=== PATIENT | female | born 1950 | race Caucasian/White ===

== ENCOUNTER → 2016-11-29 10:24 | Outpatient (CLI) | payer MEDICARE, OTHER | END | disposition home or self-care (01) | LOC: D.CT 10:24 | DX: R93.8 Abnormal findings on diagnostic imaging of other specified body structures (principal) ==

== ENCOUNTER → 2017-05-31 09:14 | Outpatient (CLI) | payer MEDICARE, OTHER | END | disposition home or self-care (01) | LOC: D.CT 09:14 | DX: N83.201 Unspecified ovarian cyst, right side (principal); N85.8 Other specified noninflammatory disorders of uterus ==

== ENCOUNTER 2018-02-18 15:20 | Observation (INO) | payer MEDICARE, OTHER ==
[~2018-02-18] VITALS: Ht 167.6 cm; Wt 110.2 kg
[2018-02-18 15:58] LABS: BASOPHILS 0.3 % (0-2); EOSINOPHILS 1.1 % (0-7); HEMATOCRIT 45.8 % (36.0-48.0); HEMOGLOBIN 15.1 g/dL (12-16); IMMATURE GRANULOCYTES 0.3 % (0-5); MCH 32.5 pg (26.0-34.0); MCV 98.7 fL (80.0-100.0); MONOCYTES 7.4 % (2-11); NEUTROPHILS 76.9 % (40-80); PLATELET COUNT 200 10x3/uL (130-400); RBC 4.64 10x6/uL (4.00-5.40); WBC 9.3 10x3/uL (4.8-10.8)
[2018-02-18 16:15] LABS: ALBUMIN 3.8 g/dL (3.4-5.0); ALKALINE PHOSPHATASE 67 U/L (46-116); ALT (SGPT) 25 U/L (10-68); BILIRUBIN - TOTAL 0.49 mg/dL (0.2-1.3); CALC OSMOLALITY 293 mosm/kg (275-300); CALCIUM 9.6 mg/dL (8.5-10.1); CARBON DIOXIDE 26.7 mmol/L (21.0-32.0); CHLORIDE - SERUM 109 mmol/L (98-107); CREATININE - SERUM 1.2 mg/dL (0.6-1.3); GLUCOSE 117 mg/dL (74-106); PROTEIN - SERUM 7.4 g/dL (6.4-8.2); SODIUM 145 mmol/L (136-145); UREA NITROGEN 23 mg/dL (7-18); eGFR NON AFRICAN AMERICAN 47 mL/min (90-120)
[2018-02-18 16:29] LABS: CKMB 1.2 U/L (0.0-3.6); CREATINE KINASE 49 UL (21-215)
[2018-02-18 16:31] LABS: APPEARANCE CLEAR (CLEAR); BILIRUBIN NEGATIVE (NEGATIVE); COLOR YELLOW (YELLOW); GLUCOSE NEGATIVE (NEGATIVE); KETONE MODERATE mg/dL (NEGATIVE); NITRITE NEGATIVE (NEGATIVE); PROTEIN NEGATIVE (NEGATIVE); UROBILINOGEN NORMAL (NORMAL)
[2018-02-18 16:32] LABS: BACTERIA MODERATE /hpf (NONE SEEN); EPITHELIAL CELLS 0-5 /hpf (0-5); RED CELLS - URINE 0-5 /hpf (0-5)
[2018-02-18 16:58] LABS: TROPONIN-I < 0.017 ng/mL (0.000-0.060)
[2018-02-18 19:45] LABS: CKMB 1.1 U/L (0.0-3.6); CREATINE KINASE 46 UL (21-215)
[2018-02-18 19:52] LABS: TROPONIN-I < 0.017 ng/mL (0.000-0.060)
[2018-02-18 23:39] VITALS: BP 164/68; BMI 39.3
[2018-02-19 01:32] LABS: CKMB 1.1 U/L (0.0-3.6); CREATINE KINASE 42 UL (21-215)
[2018-02-19 01:33] LABS: TROPONIN-I < 0.017 ng/mL (0.000-0.060)
[2018-02-19 04:00] VITALS: BP 166/71
[2018-02-19] MEDS ORDERED: NORVASC5 MG PO (04:43)
[2018-02-19] MEDS ORDERED: ZANAFLEX4 MG PO (04:44)
[2018-02-19] MEDS ORDERED: BAYER CHEWABLE81 MG PO (04:45)
[2018-02-19] MEDS ORDERED: LIPITOR10 MG PO (04:45)
[2018-02-19 07:14] LABS: BASOPHILS 0.4 % (0-2); HEMOGLOBIN 14.4 g/dL (12-16); LYMPHOCYTES 21.4 % (15-50); MCH 32.3 pg (26.0-34.0); MCHC 32.7 g/dL (31.0-37.0); MCV 98.7 fL (80.0-100.0); MEAN PLATELET VOLUME 11.2 fL (7.4-10.4); MONOCYTES 9.7 % (2-11); NEUTROPHILS 66.5 % (40-80); PLATELET COUNT 195 10x3/uL (130-400); RBC 4.46 10x6/uL (4.00-5.40); RDW 15.2 % (11.5-14.5)
[2018-02-19 07:24] LABS: WBC 6.8 10x3/uL (4.8-10.8)
[2018-02-19 07:43] LABS: CALC OSMOLALITY 290 mosm/kg (275-300); CALCIUM 9.2 mg/dL (8.5-10.1); CARBON DIOXIDE 24.6 mmol/L (21.0-32.0); CHLORIDE - SERUM 113 mmol/L (98-107); CKMB 1.1 U/L (0.0-3.6); CREATINE KINASE 43 UL (21-215); CREATININE - SERUM 1.1 mg/dL (0.6-1.3); GLUCOSE 113 mg/dL (74-106); MAGNESIUM - SERUM 2.1 mg/dL (1.8-2.4); SODIUM 145 mmol/L (136-145); TROPONIN-I < 0.017 ng/mL (0.000-0.060); eGFR NON AFRICAN AMERICAN 52 mL/min (90-120)
[2018-02-19 07:45] LABS: UREA NITROGEN 16 mg/dL (7-18)
[2018-02-19 09:22] VITALS: BP 186/73
[2018-02-19 11:03] VITALS: BMI 39.2
[2018-02-19 12:44] VITALS: BP 171/71
[2018-02-19 13:37] VITALS: Ht 167.6 cm; Wt 110.2 kg
[2018-02-19] MEDS ORDERED: LEVAQUIN250 MG PO (15:45)
[2018-02-19 16:36] VITALS: BP 169/71
== END 2018-02-19 18:01 | disposition home or self-care (01) ==
LOC: D.ER 15:20 → D.EDHOLD 18:54 → OBSVTIME 18:55 → D.MS 19:20
PROVIDERS: Family Medicine
DX: N39.0 Urinary tract infection, site not specified (principal); R42 Dizziness and giddiness; I10 Essential (primary) hypertension; F41.9 Anxiety disorder, unspecified

== ENCOUNTER → 2018-09-17 10:58 | Outpatient (CLI) | payer MEDICARE, OTHER ==
[2018-02-19 13:37] VITALS: BMI 39.2
[~2018-09-17 10:58] MED LIST: BAYER CHEWABLE81 MG PO; LEVAQUIN250 MG PO; LIPITOR10 MG PO; NORVASC5 MG PO; ZANAFLEX4 MG PO
== END | disposition home or self-care (01) ==
LOC: D.CT 10:58
DX: M25.552 Pain in left hip (principal); W18.30XA Fall on same level, unspecified, initial encounter